=== PATIENT | female | born 1975 | race Caucasian/White ===

== ENCOUNTER 2019-04-22 15:42 | Outpatient (CLI) | payer MEDICARE, MEDICAID, SELFPAY | END 2019-04-22 15:43 | disposition home or self-care (01) | LOC: SPT 15:42 | PROVIDERS: Family Provider Internal Medicine; PCP Internal Medicine; Visit Provider Podiatrist Foot & Ankle Surgery | DX: S82.892D Other fracture of left lower leg, subsequent encounter for closed fracture with routine healing (principal); X58.XXXD Exposure to other specified factors, subsequent encounter | CPT/HCPCS: L1902 ==

== ENCOUNTER 2019-05-21 12:24 | Outpatient (CLI) | payer MEDICARE, MEDICAID, SELFPAY ==
[2019-05-21 13:35] LABS: Calcium 9.2 mg/dL (8.5-10.5)
[2019-05-21 13:38] LABS: 25 Hydroxy Vitamin D 89 ng/mL (30-100)
[2019-05-27 01:12] LABS: Vit D 1,25 (Oh)2, Total 43 pg/mL (18-72); Vit D2 1,25 (Oh)2 <8 pg/mL; Vit D3 1,25 (Oh)2 43 pg/mL
== END 2019-05-21 12:25 | disposition home or self-care (01) ==
LOC: LAB 12:27
PROVIDERS: Family Provider Internal Medicine; PCP Internal Medicine; Visit Provider Internal Medicine Critical Care Medicine
DX: D86.9 Sarcoidosis, unspecified (principal)
CPT/HCPCS: 82306; 82310; 82652; 83970

== ENCOUNTER 2019-06-02 09:37 | Outpatient (CLI) | payer MEDICARE, MEDICAID, SELFPAY ==
--- NOTE | 2019-06-02 10:00 | CT_ITS ---
WS: [id number] CT CHEST WITHOUT INTRAVENOUS CONTRAST HISTORY: shortness of breath TECHNIQUE: Contiguous 5 mm axial imaging performed on the thorax. Coronal and sagittal reformats are submitted. All CT scans at [facility] use at least one of these dose optimization techniq ues: automated exposure control; mA and/or kV adjustment per patient size (includes targeted exams wh ere dose is matched to clinical indication); or iterative reconstruction. CONTRAST: None DLP: 1026.53 mGycm COMPARISON: 05/10/2010 Lungs and central airway: Lungs are clear and well aerated. Bronchovascular structures are normal. Th ere is no nodularity in a perilymphatic distribution or along the fissures. Pleura: Normal. No pleural effusion. Heart and pericardium: Normal size heart. No pericardial effusion. Mediastinum and rusty: No adenopathy is identified. Small lymph nodes seen on the prior study from 201 1 are not definitely identified on this unenhanced study. Vessels: Minimal atherosclerosis aorta. Pulmonary artery size is normal. Chest wall and lower neck: Surgical clips at the thoracic inlet. Thyroid gland is still evident. Upper abdomen: Decreased attenuation in the liver. Spleen may be enlarged but incompletely visualized . Anterior posterior diameter 16 cm. Splenomegaly was described on 08/04/2009. There is diffuse hepatic steatosis. Prior cholecystectomy. Osseous structures: Increase in thoracic kyphosis. Mild disc space narrowing and small endplate osteo phytes. CT/CT chest wo con [id number] IMPRESSION: 1. No significant adenopathy pneumonia. 2. Mild atherosclerosis aorta. 3. Hepatic steatosis and splenomegaly. Spleen is incompletely visualized but a ppears large and splenomegaly was described on 08/04/2009 also. 4. Prior cholecystectomy.
== END 2019-06-02 09:38 | disposition home or self-care (01) ==
LOC: RADWPI 09:43
PROVIDERS: Family Provider Internal Medicine; PCP Internal Medicine; Visit Provider Internal Medicine Critical Care Medicine
DX: I70.0 Atherosclerosis of aorta (principal); R06.02 Shortness of breath; K76.0 Fatty (change of) liver, not elsewhere classified; R16.1 Splenomegaly, not elsewhere classified; Z90.49 Acquired absence of other specified parts of digestive tract
CPT/HCPCS: 71250

== ENCOUNTER 2019-08-11 09:21 | Outpatient (CLI) | payer MEDICARE, MEDICAID, SELFPAY ==
--- NOTE | 2019-08-11 10:03 | MM_ITS ---
WS: [id number] BILATERAL DIGITAL SCREENING MAMMOGRAPHY WITH CAD CLINICAL INFORMATION: SCREEN HISTORY: Screening mammogram. No current complaints. COMPARISON: July 02, 2018 TECHNIQUE: Bilateral CC and MLO views. FINDINGS: Scattered fibroglandular densities bilaterally. No suspicious focal mass, asymmetry, calcifications, or architectural distortion. No evidence of malignancy. MM/[place] [id number] IMPRESSION: BI-RADS: 1-Negative FOLLOW UP: 1 Year Follow-up Recommend return to annual screening mammography.
== END 2019-08-11 09:22 | disposition home or self-care (01) ==
LOC: RADSHAW 09:26
PROVIDERS: PCP Internal Medicine; Visit Provider Internal Medicine
DX: Z12.31 Encounter for screening mammogram for malignant neoplasm of breast (principal)
CPT/HCPCS: 77067

== ENCOUNTER 2019-08-18 08:19 | Outpatient (RCR) | payer MEDICARE, MEDICAID, SELFPAY | END 2019-08-30 23:59 | disposition home or self-care (01) | LOC: SPT 08:19 | PROVIDERS: PCP Internal Medicine; Referring Provider Otolaryngology; Visit Provider Otolaryngology | DX: R42 Dizziness and giddiness (principal) | CPT/HCPCS: 97162 ==

== ENCOUNTER 2019-08-19 12:31 | Outpatient (CLI) | payer MEDICARE, MEDICAID, SELFPAY ==
--- NOTE | 2019-08-19 12:37 | XR_ITS ---
WS: [id number] LEFT SHOULDER: 3 VIEW(S) TECHNIQUE: Internal and external rotation with Y view. HISTORY: SHOULDER JOINT PAIN, LEFT COMPARISON: None available. No fracture or dislocation or soft tissue abnormality. Glenohumeral and AC joints are unremarkable. XR/XR shoulder LT min 2V* [id number] IMPRESSION: Negative LEFT shoulder for acute or healed fracture.
== END 2019-08-19 12:32 | disposition home or self-care (01) ==
LOC: RAD 12:35
PROVIDERS: PCP Internal Medicine; Visit Provider Internal Medicine
DX: M25.512 Pain in left shoulder (principal)
CPT/HCPCS: 73030

== ENCOUNTER 2019-08-31 06:00 | Outpatient (RCR) | payer MEDICARE, MEDICAID, SELFPAY | END 2019-09-29 23:59 | disposition home or self-care (01) | LOC: SPT 06:00 | PROVIDERS: PCP Internal Medicine; Visit Provider Nurse Practitioner Family | DX: M25.512 Pain in left shoulder (principal) | CPT/HCPCS: 97110; 97162 ==

== ENCOUNTER 2019-09-16 10:02 | Day surgery (SDC) | payer MEDICARE, MEDICAID, SELFPAY ==
[2019-09-14 10:06] VITALS: BMI 51.5
[2019-09-16 11:34] LABS: Glucose Point of Care 199 mg/dL (70-110)
[2019-09-16] MEDS: sodium chloride 0.9% 1,000 ML 30 ML IV (11:55)
--- NOTE | 2019-09-16 12:26 | ANES.PREANE2 ---
Pre-Anesthetic Assessment Pre-Anesthetic Assessment: Height/Weight: Height 1.73 m Weight 153.768 kg Preop Diagnosis: Chronic GERD and screening colonoscopy Proposed Procedure: Operation Date: 09/16/19 11:30 Proposed Procedures p EGD/COLON 39557 21621 K21.9 Z12.11(Not Applicable) - Anson Medina MD s Colonoscopy(Not Applicable) - Anson Medina MD Last intake: Intake Last Liquid Date 09/15/19 Last Liquid Time 20:00 Last Solid Date 09/15/19 Last Solid Time 20:00 Social: Social History: No alcohol and No tobacco Exam: Pre-Anes Outpt Exam: alert, oriented x 3, clear to auscultation bilaterally and regular rate & rhythm Airway: Submandibular: WNL Cervical ROM: WNL MP: 1 Dentition: Full (edentureless) History/ROS: No significant history except as noted Pulmonary: Pulmonary: Asthma, Sleep apnea and None reported CV/HEM: CV/HEM: HTN : : None reported Hepatic: Hepatic: None reported GI: GI: GERD (occ) Metabolic: Metabolic: DM and Morbid obesity Musc/skel: Musc/skel: Lower Back Pain and OA/DJD Neuropsych: Neuropsych: Anxiety and Depression Anesthetic Plan: ASA status: 3 Anesthesia: Anesthesia Evaluation and MAC Risk of > 500 ml blood loss (7ml/kg in children): No Meds/Allergies Current Medications: Current Medications Generic Name Dose Route Start Last Admin Trade Name Freq PRN Reason Stop Dose Admin Sodium Chloride 1,000 mls @ 30 ml s/hr 09/16/19 11:00 09/16/19 11:55 Sodium Chloride 0.9% IV 09/17/19 10:59 30 mls/hr .Q24H HEAVENLY Administration PFSH Anesthesia PFSH: Medical History Diabetes Hemolytic anemia History of benign breast tumor Sarcoidosis Type 2 diabetes mellitus Surgical History History of 2 sections History of arthroplasty of left ankle History of laparoscopic cholecystectomy History of lung biopsy Family History Mother Cancer lung cancer Stroke Other Diabetes Hyperlipidemia Hypertension Denies family history of Anesthesia complication Bleeding disorder Social History Smoking and tobacco status: never smoked Second hand smoke exposure: No Alcohol intake: never Adopted: No Caregiver/support person: Yes Lives independently: Yes Household members: family Housing: Apartment Marital status: Single service: No Current occupational status: disabled Current occupational exposures/hazards: No Pets and animals: Yes History of recent travel: No Sexually active: No Current gender identity: Female Uzma/Taoism: Episcopal Special uzma needs: No Data Anesthesia Other Labs: Laboratory Results - last 48 hr 09/16/19 11:30 POC Glucose 199 Cardiac Studies: No Data to Display
--- NOTE | 2019-09-16 13:27 | W.PM.OPSUD ---
Surgery/Procedure H&P Update DATE OF PROCEDURE: September 16, 2019 DATE H&P PERFORMED: 08/27/19 H&P UPDATE INFORMATION: I have reviewed H&P completed within last 30 days, I have examined patient prior to procedure and No changes to prior documentation PREOP DIAGNOSIS: Chronic GERD and screening colonoscopy PRIMARY INDICATION FOR PROCEDURE: The same PLANNED PROCEDURE: Operation Date: 09/16/19 11:30 Proposed Procedures p EGD/COLON 13137 18227 K21.9 Z12.11(Not Applicable) - Anson Medina MD s Colonoscopy(Not Applicable) - Anson Medina MD
[2019-09-16 13:49] VITALS: BP 124/98; PULSE 105; RESP 16; TEMP 36.2
[2019-09-16 14:04] VITALS: BP 147/100; PULSE 96; RESP 16; TEMP 36.3; O2SAT 99
== END 2019-09-16 14:25 | disposition home or self-care (01) ==
PROVIDERS: PCP Internal Medicine; Visit Provider Surgery
PROC: 0DJ08ZZ Inspection of Upper Intestinal Tract, Via Natural or Artificial Opening Endoscopic (ICD-10-PCS; CPT 43235; principal; 2019-09-16 11:30)
PROC: 0DJD8ZZ Inspection of Lower Intestinal Tract, Via Natural or Artificial Opening Endoscopic (ICD-10-PCS; CPT 45378; 2019-09-16 11:30)
DX: Z12.11 Encounter for screening for malignant neoplasm of colon (principal); K21.9 Gastro-esophageal reflux disease without esophagitis; K57.30 Diverticulosis of large intestine without perforation or abscess without bleeding; E66.01 Morbid (severe) obesity due to excess calories; Z68.43 Body mass index [BMI] 50.0-59.9, adult; J45.909 Unspecified asthma, uncomplicated; I10 Essential (primary) hypertension; G47.30 Sleep apnea, unspecified; E11.9 Type 2 diabetes mellitus without complications; M19.90 Unspecified osteoarthritis, unspecified site
CPT/HCPCS: 12345; 36416; 43235; 45378; 82962; J0171; J2704; J7030

== ENCOUNTER 2019-10-31 06:00 | Outpatient (RCR) | payer MEDICARE, MEDICAID, SELFPAY | END 2019-11-30 23:59 | disposition home or self-care (01) | LOC: SPT 06:00 | PROVIDERS: PCP Internal Medicine; Visit Provider Nurse Practitioner Family | DX: M25.512 Pain in left shoulder (principal) | CPT/HCPCS: 97110 ==

== ENCOUNTER 2020-02-23 07:47 | Outpatient (CLI) | payer MEDICARE, MEDICAID, SELFPAY ==
--- NOTE | 2020-02-23 08:00 | MR_ITS ---
WS: [id number] MRI LEFT SHOULDER NONCONTRAST TECHNIQUE: Sagittal T2, coronal T1, T2 and proton density imaging. Axial gradient PDE imaging. CLINICAL INFORMATION: SHOULDER JOINT PAIN, LEFT COMPARISON: None. FINDINGS: Mild degenerative arthritis AC joint with moderate downsloping of the acromion. Narrowing of the suba cromial space. No significant subacromial/subdeltoid fluid. Mild chronic thinning of the supraspinatus. Mild tendinopathy in the distal supraspinatus. Tiny inser tional tear of the supraspinatus insertion distally. Normal infraspinatus. Normal teres minor. Mild c hronic thinning of the subscapularis tendon distally which appears intact. Normal biceps tendon in th e bicipital groove. Normal intra-articular biceps tendon. Chronic fraying of the glenoid labrum. MR/MR shoulder LT con* [id number] IMPRESSION: 1. Mild degenerative arthritis at the AC joint with moderate downsloping of th e acromion. 2. Chronic thinning of the distal supraspinatus with tendinopathy. Tiny insert ional tear at the supraspinatus insertion distally. 3. Rotator cuff is otherwise unremarkable. 4. Normal biceps tendon in the bicipital groove. 5. Normal intra-articular biceps tendon.
== END 2020-02-23 07:48 | disposition home or self-care (01) ==
LOC: RADWPI 07:52
PROVIDERS: PCP Internal Medicine; Visit Provider Internal Medicine
DX: M19.012 Primary osteoarthritis, left shoulder (principal)
CPT/HCPCS: 73221

== ENCOUNTER 2020-03-10 08:28 | Outpatient (RCR) | payer MEDICARE, MEDICAID, SELFPAY | END 2020-03-31 23:59 | disposition home or self-care (01) | LOC: SPT 08:28 | PROVIDERS: PCP Internal Medicine; Referring Provider Orthopaedic Surgery; Visit Provider Orthopaedic Surgery | DX: M25.512 Pain in left shoulder (principal) | CPT/HCPCS: 97110; 97162 ==

== ENCOUNTER 2020-04-01 06:00 | Outpatient (RCR) | payer MEDICARE, MEDICAID, SELFPAY | END 2020-05-01 23:59 | disposition home or self-care (01) | LOC: SPT 06:00 | PROVIDERS: PCP Internal Medicine; Referring Provider Orthopaedic Surgery; Visit Provider Orthopaedic Surgery | DX: M25.512 Pain in left shoulder (principal) | CPT/HCPCS: 97110 ==

== ENCOUNTER 2020-07-29 15:46 | Emergency (ER) | payer MEDICARE, MEDICAID, SELFPAY ==
[2020-07-29 15:48] VITALS: BP 170/76; PULSE 92; RESP 18; TEMP 36.8; O2SAT 97; BMI 50.1
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
[2020-07-29] MEDS: tetanus-dipt-pertussis 0.5 mL SDV IM (18:05)
[2020-07-29 18:08] VITALS: BP 159/105; PULSE 87; RESP 18; O2SAT 98
[2020-07-29] MEDS: acetaminophen 500 mg Tablet 1000 MG PO (18:40)
[2020-07-29 19:26] VITALS: BP 162/94; PULSE 85; RESP 16; O2SAT 100
== END 2020-07-29 19:28 | disposition home or self-care (01) ==
PROVIDERS: Emergency Provider Nurse Practitioner Family; PCP Internal Medicine
DX: S16.1XXA Strain of muscle, fascia and tendon at neck level, initial encounter (principal); S01.81XA Laceration without foreign body of other part of head, initial encounter; S00.03XA Contusion of scalp, initial encounter; Z79.4 Long term (current) use of insulin; E11.9 Type 2 diabetes mellitus without complications; V47.5XXA Car driver injured in collision with fixed or stationary object in traffic accident, initial encounter; Z23 Encounter for immunization
CPT/HCPCS: 71046; 72040; 72072; 90471; 90715; 99283

== ENCOUNTER 2020-11-05 12:48 | Emergency (ER) | payer MEDICARE, MEDICAID, SELFPAY ==
[2020-11-05 12:55] VITALS: BP 191/93; PULSE 59; RESP 18; TEMP 37.2; O2SAT 98; BMI 51.7
--- NOTE | 2020-11-05 13:06 | ED_ITS ---
HPI - URI/Sore Throat General: Chief Complaint: COVID symptoms Stated Complaint: SORE THROAT Time Seen by Provider: 11/05/20 12:54 Source: patient Mode of arrival: ambulatory Limitations: no limitations History of Present Illness: HPI Narrative: Patient is a 45-year-old female who presents to ED today with a complaint of a sore throat, cough, and fatigue. Patient tells me she attended an event last week where one of the individuals was positive for strep and another was positive for COVID. Patient states she has been to her PCP and tested for strep which came back negative. She also states culture came back negative. Patient states she has been fully vaccinated for COVID. She has not been running fevers. Denies chest pain, shortness of breath, difficulty breathing. MD elicited complaint: cough, sore throat and other (fatigue) Onset (ago): day(s) Consistency: constant Able to tolerate fluids by mouth: Yes Context: sick contacts Associated symptoms: Deny abdominal pain, chills, chest pain, diarrhea, ear or mastoid pain, fever(s), headache(s), nasal congestion, nausea, sinus pain or vomiting Review of Systems Const: Reports: fatigue; Denies: fever(s), chills or body aches Eyes: Denies: change in vision ENMT: Reports: throat pain and odynophagia; Denies: ear or mastoid pain, nasal discharge, nasal congestion or sinus pain Card: Denies: chest pain, palpitations, irregular heart rhythm, edema, lightheadedness, syncope, pre-syncope, dyspnea on exertion or orthopnea Resp: Reports: non-productive cough and pain on inspiration; Denies: dyspnea, productive cough, wheezing, stridor or hemoptysis GI: Denies: abdominal pain, nausea, vomiting or diarrhea : Denies: flank pain or dysuria Musc: Denies: neck pain, back pain, extremity pain or joint pain Skin/Breast: Denies: rash Neuro: Denies: headache(s), numbness in extremities, weakness in extremities, sensory changes or dizziness PFS ED PFSH: Medical History (Updated 11/05/20 @ 15:25 by MELLISA Godinez) Diabetes Hemolytic anemia History of benign breast tumor Sarcoidosis Type 2 diabetes mellitus Surgical History History of 2 sections History of arthroplasty of left ankle History of laparoscopic cholecystectomy History of lung biopsy Family History Mother Cancer lung cancer Stroke Other Diabetes Hyperlipidemia Hypertension Denies family history of Anesthesia complication Bleeding disorder Social History Smoking and tobacco status: never smoked Second hand smoke exposure: No Alcohol intake: never Adopted: No Caregiver/support person: Yes Lives independently: Yes Household members: family Housing: Apartment Marital status: Single service: No Current occupational status: disabled Current occupational exposures/hazards: No Pets and animals: Yes History of recent travel: No Sexually active: No Current gender identity: Female Uzma/Holiness: Confucianist Special uzma needs: No Physical Exam Const: COMMON NORMALS: no acute distress, patient oriented x3, no limitations and alert GENERAL APPEARANCE: cooperative NUTRITIONAL APPEARANCE: obese morbidly obese ORIENTATION/CONSCIOUSNESS: Yes awake, Yes oriented to person, Yes oriented to place and Yes oriented to time HENMT: COMMON NORMALS: normocephalic, atraumatic, hearing grossly normal bila terally, external ears normal, EAC's normal, TM's normal bilaterally, Normal external nose present, Normal nasal mucous membranes and turbinates present, moist oral mucous membranes, oropharynx normal and gingiva normal HEAD & SCALP: normal to inspection, normocephalic and atraumatic FACE & SINUS: normal facial exam and sinuses nontender NOSE: Normal external nose present and Normal nasal mucous membranes and turbinates present EXTERNAL EAR: Yes external ears normal EXTERNAL AUDITORY CANAL: EAC's normal TYMPANIC MEMBRANE: TM's normal bilaterally MOUTH: Normal oral and palatal mucosa present, lip normal and tongue normal THROAT: posterior oropharynx normal, tonsils normal and uvula midline Neck/C-Spine: COMMON NORMALS: full ROM, no lymphadenopathy and no meningeal signs Resp: COMMON NORMALS: normal respiratory effort and clear to auscultation bilaterally AUSCULTATION: clear to auscultation bilaterally Cardio: COMMON NORMALS: regular rate and regular rhythm RATE: regular rate RHYTHM: regular rhythm Neuro: SANIYA COMA SCALE: document GCS findings Saniya coma scale eye opening: Spontaneous Saniya coma scale verbal response: Orientated Saniya coma scale motor response: Obey commands Saniya coma scale total score: 15 COMMON NORMALS: patient oriented x3 SENSORIUM/ORIENTATION: Yes alert, Yes oriented to person, Yes oriented to place and Yes oriented to time MENINGEAL SIGNS: Yes no meningeal signs Skin: COMMON NORMALS: no rashes or lesions noted GENERAL SKIN EXAM: no rashes or lesions noted Course Vital Signs: Vital signs: Vital Signs Temperature 99 F 11/05/20 12:55 Pulse Rate 89 11/05/20 13:53 Respiratory Rate 18 11/05/20 13:53 Blood Pressure 177/77 11/05/20 13:53 Pulse Oximetry 97 11/05/20 13:53 MDM - URI/Sore Throat MDM Narrative: Medical decision making narrative: Patient clinically is non- ill and nontoxic appearing. Her vital signs are stable. Labs showing stable chronic anemia. She has nonspecific elevations to her liver enzymes and tbili that are chronic. CXR is normal. Rapid COVID is negative. PCR pending. Patient will be allowed discharge with instructions for quarantine until PCR results return. Return to ED precautions given. Lab Data: Labs: Lab Results 11/05/20 11/05/20 11/05/20 Range/Units 13:49 13:49 13:49 WBC 6.6 (4.0-10.0) 10^3/ uL RBC 3.39 L (4.1-5.3) 10^6/u L Hgb 10.2 L (11.5-15.3) g/dL Hct 31.7 L (37.0-47.0) % MCV 93.5 (81-99) fL MCH 30.1 (28.0-34.0) pg MCHC 32.2 (30.0-36.0) g/dL RDW 20.9 H (12.1-15.1) % Plt Count 210 (130-400) 10^3/c mm MPV 10.1 (7.4-10.4) fL Neut % (Auto) 75.8 % Lymph % (Auto) 16.8 % Hart % (Auto) 5.3 % Eos % (Auto) 1.2 % Baso % (Auto) 0.6 % Neut # (Auto) 5.01 (1.8-7.7) 10^3/u L Lymph # (Auto) 1.1 (0.8-4.8) 10^3/u L Hart # (Auto) 0.4 (0.2-0.9) 10^3/u L Eos # (Auto) 0.1 (0.0-0.8) 10^3/u L Baso # (Auto) 0.0 (0.0-0.1) 10^3/u L Nucleated RBC % (a uto) 0 % Nucleated RBCs # 0.0 /100WBC Sodium 135 L (136-145) mmol/L Potassium 3.5 (3.5-5.1) mmol/L Chloride 102 (98-107) mmol/L Carbon Dioxide 22 (22-29) mmol/L Anion Gap 14.5 (5-19) BUN 7 (6-20) mg/dL Creatinine 0.4 L (0.5-0.9) mg/dL GFR Calculation 171.1 H (90-130) mL/min Glucose 296 H (65-115) mg/dL Calculated Osmolal ity 289 (285-295) mOsm/k g Calcium 8.0 L (8.5-10.5) mg/dL Total Bilirubin 1.7 H (0.15-1.2) mg/dL AST 41 H (0-32) U/L ALT 42 H (0-33) U/L Alkaline Phosphata se 70 (35-105) IU/L Total Protein 6.9 (6.6-8.7) g/dL Albumin 3.5 (3.5-5.2) g/dL Globulin 3.4 (1.3-4.6) g/dL SARS-CoV-2 Ag (Rap id) Negative (Negative) Imaging Data^: CXR: Radiologist's impression: [address] [id number] ReportSigned Patient: Deedee Beck #: [id number]: 1975Acct#:[id number]/Sex: 45 / FADM Date: 11/05/20Loc: ERRoom/B ed:Attending Dr: Ordering Provider/Ordering MD: Jimena Neff Date of Service: 11/05/20 Procedure(s): XR chest 1V portable [id number] Accession Number(s): [id number] Report Number: [id number] PROCEDURE INFORMATION: Exam: XR Chest Exam date and time: 11/05/2020 1:16 PM Age: 45 years old Clinical indication: Cough and shortness of breath; Additional info: Cough, fatigue TECHNIQUE: Imaging protocol: XR of the chest. Views: 1 view. COMPARISON: CR XR chest 2V* [id number] 07/29/2020 5:50 PM FINDINGS: Lungs: Unremarkable. No consolidation. Pleural spaces: Unremarkable. No pleural effusion. No pneumothorax. Heart/Mediastinum: Unremarkable. No cardiomegaly. Bones/joints: Unremarkable. XR/XR chest 1V portable [id number] IMPRESSION: No acute findings. Dictated By:Joseph Tesfaye DOSigned By:Joseph Tesfaye DOSigned Date/Time:11/05/20 1509DD/ 150 Discharge Plan Discharge Patient Disposition: Home Clinical Impression: Exposure to severe acute respiratory syndrome coronavirus 2 (SARS-CoV-2), Exposure to 2019-nCoV Upper respiratory tract infection Qualifiers: URI type: unspecified viral URI Qualified Code(s): J06.9 - Acute upper respiratory infection, unspecified Condition: Stable Prescriptions: No Action ibuprofen 800 mg tablet 800 mg PO Q8H RF: 0 albuterol sulfate 90 mcg/actuation aerosol powdr breath activated See Rx Instructions .ROUTE .COMPLEX RF: 0 enalapril maleate 2.5 mg tablet 2.5 mg PO DAILY@0800 RF: 0 atorvastatin [Lipitor] 10 mg tablet 10 mg PO DAILY@2000 RF: 0 baclofen 10 mg tablet 10 mg PO BID RF: 0 cyanocobalamin (vitamin B-12) 1,000 mcg capsule 1,000 mcg PO DAILY@0800 RF: 0 Zyrtec 10 mg capsule 10 mg PO DAILY@1999 RF: 0 insulin lispro [Humalog KwikPen Insulin] 100 unit/mL insulin pen 5 unit SUBCUT TID RF: 0 folic acid 1 mg tablet 1 mg PO DAILY@0800 RF: 0 Lantus Solostar U-100 Insulin 100 unit/mL (3 mL) insulin pen 60 unit SUBCUT DAILY@0800 RF: 0 hydroxychloroquine [Plaquenil] 200 mg tablet 200 mg PO DAILY@0800 RF: 0 metformin 500 mg tablet 1,000 mg PO BID@0800 RF: 0 venlafaxine [Effexor XR] 150 mg capsule,extended release 24hr 150 mg PO DAILY@0800 RF: 0 omeprazole 40 mg capsule,delayed release(DR/EC) 40 mg PO DAILY@0800 RF: 0 azelastine 137 mcg (0.1 %) aerosol,spray 1 spray intranasal BID 30 Days Qty: 30 RF: 6 Trulicity 1.5 mg/0.5 mL pen injector 1.5 mg SUBCUT Q7D RF: 0 Symbicort 160-4.5 mcg/actuation HFA aerosol inhaler 2 puff inhalation BID@0800,1999 RF: 0 Discharge Orders: Discharge ED (Routine); Ordered 11/05/20 Ordered By: Jimena Neff Referrals: Marge Oshea MD [Primary Care Provider] - Activity Restrictions/Additional Instructions: As we discussed your rapid COVID is negative. Your PCR send out test is pending. You need to quarantine until these results return. If positive you need to quarantine for a full 10 days starting from symptom onset and quarantine is not lifted until symptoms improve. Coding Level of Care Code ED [employer] for Roland Fwd Exam Detailed
--- NOTE | 2020-11-05 13:16 | XRR_ITS ---
PROCEDURE INFORMATION: Exam: XR Chest Exam date and time: 11/05/2020 1:16 PM Age: 45 years old Clinical indication: Cough and shortness of breath; Additional info: Cough, fatigue TECHNIQUE: Imaging protocol: XR of the chest. Views: 1 view. COMPARISON: CR XR chest 2V* [id number] 07/29/2020 5:50 PM FINDINGS: Lungs: Unremarkable. No consolidation. Pleural spaces: Unremarkable. No pleural effusion. No pneumothorax. Heart/Mediastinum: Unremarkable. No cardiomegaly. Bones/joints: Unremarkable. XR/XR chest 1V portable [id number] IMPRESSION: No acute findings.
[2020-11-05 13:53] VITALS: BP 177/77; PULSE 89; RESP 18; O2SAT 97
[2020-11-05 14:00] VITALS: BP 160/82; PULSE 87; RESP 18; O2SAT 100
[2020-11-05 14:05] LABS: Basophils % 0.6 %; Eosinophils # 0.1 10^3/uL (0.0-0.8); Eosinophils % 1.2 %; Hematocrit 31.7 % (37.0-47.0); Hemoglobin 10.2 g/dL (11.5-15.3); Lymphocytes # 1.1 10^3/uL (0.8-4.8); Lymphocytes % 16.8 %; Mean Corpuscular HGB Conc 32.2 g/dL (30.0-36.0); Mean Corpuscular Hemoglobin 30.1 pg (28.0-34.0); Mean Corpuscular Volume 93.5 fL (81-99); Mean Platelet Volume 10.1 fL (7.4-10.4); Monocytes # 0.4 10^3/uL (0.2-0.9); Monocytes % 5.3 %; Neutrophils # 5.01 10^3/uL (1.8-7.7); Neutrophils % 75.8 %; Nucleated Red Blood Cells % 0 %; Platelet Count 210 10^3/cmm (130-400); Red Blood Count 3.39 10^6/uL (4.1-5.3); Red Cell Distribution Width 20.9 % (12.1-15.1); White Blood Count 6.6 10^3/uL (4.0-10.0)
[2020-11-05 14:25] LABS: Alanine Aminotransferase 42 U/L (0-33); Albumin Level 3.5 g/dL (3.5-5.2); Alkaline Phosphatase 70 IU/L (35-105); Anion Gap 14.5 (5-19); Aspartate Amino Transferase 41 U/L (0-32); Blood Urea Nitrogen 7 mg/dL (6-20); Carbon Dioxide 22 mmol/L (22-29); Chloride 102 mmol/L (98-107); Globulin 3.4 g/dL (1.3-4.6); Glomerular Filtration Rate 171.1 mL/min (90-130); Glucose 296 mg/dL (65-115); Osmolality Calculated 289 mOsm/kg (285-295); Potassium 3.5 mmol/L (3.5-5.1); Sodium 135 mmol/L (136-145); Total Bilirubin 1.7 mg/dL (0.15-1.2); Total Protein 6.9 g/dL (6.6-8.7)
[2020-11-05 15:14] LABS: SARS Covid-2 Antigen Negative (Negative)
[2020-11-05 15:53] VITALS: BP 164/88; PULSE 89; RESP 18; O2SAT 100
[2020-11-07 21:53] LABS: Quest SARS-CoV-2 RNA NOT DETECTED (NOT DETECTED)
--- NOTE | 2020-11-08 09:54 | PC.NURSE ---
PT CALLED AND GIVEN THE RESULTS OF HER COVID TEST
== END 2020-11-05 15:55 | disposition home or self-care (01) ==
PROVIDERS: Emergency Provider Physician Assistant; PCP Internal Medicine
DX: J06.9 Acute upper respiratory infection, unspecified (principal); Z20.822 Contact with and (suspected) exposure to COVID-19; Z79.4 Long term (current) use of insulin; E11.9 Type 2 diabetes mellitus without complications
CPT/HCPCS: 71045; 80053; 85025; 87426; 87635; 99283

== ENCOUNTER 2021-07-14 07:37 | Outpatient (CLI) | payer MEDICARE, MEDICAID, SELFPAY ==
--- NOTE | 2021-07-14 07:51 | XR_ITS ---
WS: [id number] Lumbar spine, AP, both obliques, lateral, L5-S1 spot, 07/14/2021 Clinical Data: L SIDE LUMBAGO W/SCIATICA Comparison: Lumbar spine, 10/02/2013. Findings: No compression fractures or subluxation is seen. Degenerative disc narrowing is seen at the lower tho racic discs and T12-L1 and L1-L2. There is anterior osteoarthritic spurring from L1 through L4.. The transverse processes and SI joints are normal. The oblique films show no spondylolysis. There are clips in the right upper quadrant from a cholecyst ectomy. There are a plate and screws repairing an old fracture of the right acetabulum. XR/XR lumbar spine min 4V [id number] Impression: 1. Osteoarthritis L1-L4. 2. Degenerative disc narrowing at T12-L1 and L1-L2. 3. No spondylolysis or spondylolisthesis.
== END 2021-07-14 07:38 | disposition home or self-care (01) ==
LOC: RAD 07:40
PROVIDERS: PCP Internal Medicine; Visit Provider Nurse Practitioner Family
DX: M54.40 Lumbago with sciatica, unspecified side (principal); M47.896 Other spondylosis, lumbar region; M47.894 Other spondylosis, thoracic region
CPT/HCPCS: 72110

== ENCOUNTER 2021-08-21 08:27 | Outpatient (CLI) | payer OTHER, MEDICAID, SELFPAY ==
--- NOTE | 2021-08-21 08:36 | CT_ITS ---
WS: [id number] CT NECK TECHNIQUE: Contrast-enhanced CT of the neck with coronal and sagittal reformatted images. CLINICAL INFORMATION: CERVICALGIA COMPARISON: None. DLP: 672.[address] scans at [facility] use at least one of these dose optimization techniques: automated e xposure control; mA and/or kV adjustment per patient size (includes targeted exams where dose is matc hed to clinical indication); or iterative reconstruction. FINDINGS: Normal parotid glands. A few intraparotid lymph nodes. Normal submandibular glands. Surgical clips at the thoracic inlet. Normal parapharyngeal fat. Normal posterior nasopharynx. Mastoid air cells are w ell aerated. Paranasal sinuses are well aerated. Normal vallecula and piriform sinuses. Normal epiglottis. No evidence of supraglottic or glottic mass . Heterogeneous somewhat enlarged thyroid. This can be followed up with ultrasound on an elective bas is. Straightening of the normal cervical lordosis. Slight anterolisthesis C4 on C5. CT/CT neck w con* [id number] IMPRESSION: 1. Normal salivary glands. 2. No evidence of supraglottic or glottic mass. 3. No cervical lymphadenopathy. 4. Somewhat enlarged and heterogeneous thyroid. This can be followed up with u ltrasound on an elective basis. 5. Straightening of the normal cervical lordosis. Slight anterolisthesis C4 on C5. 6. No other significant findings.
[2021-08-21] MEDS: iohexol 300 mg/mL 100 mL Btl IV (14:48)
== END 2021-08-21 08:28 | disposition home or self-care (01) ==
LOC: RAD 08:32
PROVIDERS: PCP Internal Medicine; Visit Provider Specialist
DX: M54.2 Cervicalgia (principal)
CPT/HCPCS: 70491

== ENCOUNTER 2021-08-24 11:17 | Outpatient (CLI) | payer OTHER, MEDICAID, SELFPAY ==
--- NOTE | 2021-08-24 11:32 | XR_ITS ---
WS: [id number] Exam: XR chest 2V* [id number] Date/Time of Exam: 08/24/2021 11:48 AM Reason For Exam: COUGH Comparison 11/05/2020. Findings: The lungs are clear and fully expanded. Costophrenic angles are sharp. No infiltrates. Bronchovascula r relief appears normal. Cardiac silhouette is unremarkable. Bony elements are intact. XR/XR chest 2V* [id number] IMPRESSION: Unremarkable chest radiograph.
== END 2021-08-24 11:18 | disposition home or self-care (01) ==
LOC: RAD 11:19
PROVIDERS: PCP Internal Medicine; Visit Provider Internal Medicine
DX: R05.9 Cough, unspecified (principal)
CPT/HCPCS: 71046

== ENCOUNTER 2021-10-16 09:57 | Outpatient (CLI) | payer OTHER, MEDICAID, SELFPAY ==
--- NOTE | 2021-10-16 10:02 | MM_ITS ---
WS: [id number] SCREENING DIGITAL BREAST TOMOSYNTHESIS MAMMOGRAM WITH CAD HISTORY: SCREENING COMPARISON: 08/11/2019 and 07/02/2018 Bilateral CC and MLO with tomosynthesis views submitted. Synthetic mammography reviewed. Computer aid ed detection analyzed. Breast composition: There are scattered areas of fibroglandular density. No suspicious masses, microc alcifications or architectural distortion. MM/[place] [id number] IMPRESSION: BI-RADS: 1-Negative FOLLOW UP: 1 Year Follow-up
== END 2021-10-16 09:58 | disposition home or self-care (01) ==
LOC: RAD 09:57
PROVIDERS: PCP Internal Medicine; Visit Provider Internal Medicine
DX: Z12.31 Encounter for screening mammogram for malignant neoplasm of breast (principal)
CPT/HCPCS: 77063; 77067

== ENCOUNTER → 2021-10-19 11:56 | Outpatient (BNVA) | payer OTHER, MEDICAID, SELFPAY | PROVIDERS: PCP Internal Medicine; Visit Provider Internal Medicine | DX: D86.9 Sarcoidosis, unspecified (principal); M25.50 Pain in unspecified joint; Z79.899 Other long term (current) drug therapy | CPT/HCPCS: 36415; 71046; 73120; 80053; 81001; 82550; 83516; 84443; 85025; 86140; 86160; 86162; 86200; 86235; 86255; 86376; 86431; 86480; 86704; 86803; 87340 ==

== ENCOUNTER 2021-11-21 14:03 | Outpatient (CLI) | payer OTHER, MEDICAID, SELFPAY ==
[2021-11-22 13:34] LABS: Angiotensin Converting Enzyme 16 U/L (9-67)
== END 2021-11-21 14:04 | disposition home or self-care (01) ==
LOC: LAB 14:05
PROVIDERS: PCP Internal Medicine; Visit Provider Internal Medicine
DX: M25.50 Pain in unspecified joint (principal)
CPT/HCPCS: 82164

== ENCOUNTER 2021-12-23 12:43 | Outpatient (CLI) | payer OTHER, MEDICAID, SELFPAY ==
[2021-12-23 13:06] LABS: Basophils # 0.1 10^3/uL (0.0-0.1); Basophils % 0.7 %; Eosinophils # 0.3 10^3/uL (0.0-0.8); Hematocrit 37.1 % (37.0-47.0); Hemoglobin 12.6 g/dL (11.5-15.3); Lymphocytes # 1.8 10^3/uL (0.8-4.8); Lymphocytes % 14.4 %; Mean Corpuscular Volume 91.4 fl (81-99); Mean Platelet Volume 9.9 fL (7.4-10.4); Monocytes # 0.9 10^3/uL (0.2-0.9); Monocytes % 6.8 %; Neutrophils # 9.65 10^3/uL (1.8-7.7); Neutrophils % 75.8 %; Nucleated Red Blood Cells % 0 %; Platelet Count 374 10^3/cmm (130-400); Red Blood Count 4.06 10^6/uL (4.1-5.3); Red Cell Distribution Width 19.7 % (12.1-15.1); White Blood Count 12.7 10^3/uL (4.0-10.0)
== END 2021-12-23 12:44 | disposition home or self-care (01) ==
PROVIDERS: PCP Internal Medicine; Visit Provider Nurse Practitioner
DX: R07.81 Pleurodynia (principal)
CPT/HCPCS: 36415; 81000; 85025

== ENCOUNTER 2021-12-23 12:44 | Outpatient (CLI) | payer OTHER, MEDICAID, SELFPAY ==
--- NOTE | 2021-12-23 12:58 | XRR_ITS ---
PROCEDURE INFORMATION: Exam: XR Right Ribs Exam date and time: 12/23/2021 12:59 PM Age: 46 years old Clinical indication: Chest wall pain; Right TECHNIQUE: Imaging protocol: Radiologic exam of the Right ribs. Views: 2 views. COMPARISON: CR XR chest 2V* [id number] 10/19/2021 12:02 PM FINDINGS: Bones/joints: Osseous structures are intact. No evidence of rib fracture. Soft tissues: Normal. XR/XR ribs RT 2V* [id number] IMPRESSION: No acute findings.
== END 2021-12-23 12:45 | disposition home or self-care (01) ==
LOC: RAD 12:46
PROVIDERS: PCP Internal Medicine; Visit Provider Nurse Practitioner
DX: R07.81 Pleurodynia (principal); R07.89 Other chest pain
CPT/HCPCS: 71100

== ENCOUNTER → 2022-02-25 10:30 | Outpatient (BNVA) | payer MEDICARE, MEDICAID, SELFPAY | PROVIDERS: PCP Internal Medicine; Visit Provider Registered Nurse Neonatal Intensive Care | DX: M79.671 Pain in right foot (principal); S99.911A Unspecified injury of right ankle, initial encounter | CPT/HCPCS: 73610 ==

== ENCOUNTER → 2022-03-06 15:37 | Outpatient (BNVA) | payer MEDICARE, MEDICAID, SELFPAY | PROVIDERS: PCP Internal Medicine; Visit Provider Internal Medicine | DX: D86.9 Sarcoidosis, unspecified (principal); R76.8 Other specified abnormal immunological findings in serum | CPT/HCPCS: 99214 ==

== ENCOUNTER 2022-04-11 10:56 | Oncology outpatient (recurring) (ONCR) | payer MEDICARE, MEDICAID, SELFPAY ==
[2022-04-11 12:34] LABS: Basophils # 0.1 10^3/uL (0.0-0.1); Basophils % 0.8 %; Eosinophils # 0.2 10^3/uL (0.0-0.8); Eosinophils % 2.9 %; Hematocrit 27.6 % (37.0-47.0); Hemoglobin 8.8 g/dL (11.5-15.3); Lymphocytes % 15.2 %; Mean Corpuscular HGB Conc 31.9 g/dL (30.0-36.0); Mean Corpuscular Hemoglobin 30.4 pg (28.0-34.0); Mean Corpuscular Volume 95.5 fl (81-99); Mean Platelet Volume 9.6 fL (7.4-10.4); Monocytes # 0.5 10^3/uL (0.2-0.9); Monocytes % 7.3 %; Neutrophils # 4.63 10^3/uL (1.8-7.7); Neutrophils % 73.5 %; Nucleated Red Blood Cells % 0 %; Platelet Count 236 10^3/cmm (130-400); Red Blood Count 2.89 10^6/uL (4.1-5.3); Red Cell Distribution Width 21.6 % (12.1-15.1); White Blood Count 6.3 10^3/uL (4.0-10.0)
[2022-04-11 12:35] LABS: Reticulocyte % 6.9 % (0.5-2.0)
[2022-04-11 13:15] LABS: LAB Peripheral Smear Sent for Review
[2022-04-11 13:17] LABS: Alanine Aminotransferase 16 U/L (0-33); Albumin Level 3.7 g/dL (3.5-5.2); Alkaline Phosphatase 57 U/L (35-105); Anion Gap 11.8 (5-19); Aspartate Amino Transferase 23 U/L (0-32); Blood Urea Nitrogen 11 mg/dL (6-20); Calcium 9.2 mg/dL (8.5-10.5); Carbon Dioxide 26 mmol/L (22-29); Chloride 105 mmol/L (98-107); Globulin 3.6 g/dL (1.3-4.6); Glomerular Filtration Rate 106.3 mL/min (90-130); Glucose 126 mg/dL (65-115); Iron 68 ug/dL (37-145); Lactate Dehydrogenase 250 U/L (135-214); Osmolality Calculated 289 mOsm/kg (285-295); Percent Saturation 24.5 % (20-50); Potassium 3.8 mmol/L (3.5-5.1); Sodium 139 mmol/L (136-145); Total Bilirubin 1.6 mg/dL (0.15-1.2); Total Iron Binding Capacity 277 mcg/dl; Total Protein 7.3 g/dL (6.6-8.7); Unsaturated Iron Binding 209 ug/dL (112-347); Vitamin B12 486 pg/mL (232-1245)
[2022-04-11 13:33] LABS: Folate Level > 20.0 ng/mL (4.8-37.3)
== END 2022-05-01 23:59 | disposition home or self-care (01) ==
PROVIDERS: PCP Internal Medicine; Visit Provider Internal Medicine Medical Oncology
DX: D58.8 Other specified hereditary hemolytic anemias (principal); Z86.16 Personal history of COVID-19
CPT/HCPCS: 36415; 80053; 82248; 82607; 82746; 83010; 83540; 83550; 83615; 85025; 85045; 86880; 99204

== ENCOUNTER → 2022-05-15 10:43 | Outpatient (BNVA) | payer MEDICARE, MEDICAID, SELFPAY | PROVIDERS: PCP Internal Medicine; Visit Provider Podiatrist Foot & Ankle Surgery | DX: E11.8 Type 2 diabetes mellitus with unspecified complications (principal); E11.21 Type 2 diabetes mellitus with diabetic nephropathy; M20.41 Other hammer toe(s) (acquired), right foot; M20.42 Other hammer toe(s) (acquired), left foot; L60.3 Nail dystrophy; M21.621 Bunionette of right foot; M21.622 Bunionette of left foot; L84 Corns and callosities; Z79.84 Long term (current) use of oral hypoglycemic drugs; Z79.4 Long term (current) use of insulin; M20.40 Other hammer toe(s) (acquired), unspecified foot | CPT/HCPCS: 11056; 11721 ==

== ENCOUNTER 2022-05-17 09:57 | Oncology outpatient (recurring) (ONCR) | payer MEDICARE, MEDICAID, SELFPAY ==
[2022-05-17 10:26] LABS: Reticulocyte % 6.6 % (0.5-2.0)
[2022-05-17 10:27] LABS: Basophils # 0.1 10^3/uL (0.0-0.1); Basophils % 0.9 %; Eosinophils # 0.2 10^3/uL (0.0-0.8); Hematocrit 26.9 % (37.0-47.0); Hemoglobin 8.9 g/dL (11.5-15.3); Lymphocytes # 0.8 10^3/uL (0.8-4.8); Lymphocytes % 15.1 %; Mean Corpuscular HGB Conc 33.1 g/dL (30.0-36.0); Mean Corpuscular Hemoglobin 30.6 pg (28.0-34.0); Mean Corpuscular Volume 92.4 fl (81-99); Mean Platelet Volume 8.9 fL (7.4-10.4); Monocytes # 0.3 10^3/uL (0.2-0.9); Monocytes % 6.1 %; Neutrophils # 4.16 10^3/uL (1.8-7.7); Neutrophils % 74.5 %; Nucleated Red Blood Cells % 0 %; Platelet Count 196 10^3/cmm (130-400); Red Blood Count 2.91 10^6/uL (4.1-5.3); Red Cell Distribution Width 21.3 % (12.1-15.1); White Blood Count 5.6 10^3/uL (4.0-10.0)
[2022-05-17 10:48] LABS: Iron 93 ug/dL (37-145); Lactate Dehydrogenase 268 U/L (135-214); Percent Saturation 32.7 % (20-50); Total Iron Binding Capacity 284 mcg/dl; Unsaturated Iron Binding 191 ug/dL (112-347)
== END 2022-05-29 23:59 | disposition home or self-care (01) ==
PROVIDERS: PCP Internal Medicine; Visit Provider Internal Medicine Medical Oncology
DX: D58.8 Other specified hereditary hemolytic anemias (principal); D86.1 Sarcoidosis of lymph nodes; M35.00 Sjogren syndrome, unspecified; M05.9 Rheumatoid arthritis with rheumatoid factor, unspecified; Z79.899 Other long term (current) drug therapy
CPT/HCPCS: 36415; 83540; 83550; 83615; 85025; 85045; 88184; 88185; 99214

== ENCOUNTER → 2022-07-09 12:59 | Outpatient (BNVA) | payer MEDICARE, MEDICAID, SELFPAY | PROVIDERS: PCP Internal Medicine; Visit Provider Internal Medicine | DX: R76.8 Other specified abnormal immunological findings in serum (principal); D86.9 Sarcoidosis, unspecified | CPT/HCPCS: 36415; 80053; 82784; 83010; 83615; 85025; 85045; 85651; 86140; 99214 ==

== ENCOUNTER → 2022-07-17 15:00 | Outpatient (BNVA) | payer MEDICARE, MEDICAID, SELFPAY | PROVIDERS: PCP Internal Medicine; Visit Provider Nurse Practitioner Women's Health | DX: L60.1 Onycholysis (principal); N91.2 Amenorrhea, unspecified; N95.0 Postmenopausal bleeding | CPT/HCPCS: 82670; 83001; 84146; 84443; 84702; 87624 ==

== ENCOUNTER 2022-07-18 12:46 | Oncology outpatient (recurring) (ONCR) | payer MEDICARE, MEDICAID, SELFPAY | END 2022-07-29 23:59 | disposition home or self-care (01) | LOC: ONCMED 12:46 | PROVIDERS: PCP Internal Medicine; Visit Provider Internal Medicine Medical Oncology | DX: D58.0 Hereditary spherocytosis; D59.4 Other nonautoimmune hemolytic anemias; R53.82 Chronic fatigue, unspecified; Z90.81 Acquired absence of spleen; Z79.899 Other long term (current) drug therapy | CPT/HCPCS: 99214 ==

== ENCOUNTER → 2022-08-07 10:34 | Outpatient (BNVA) | payer MEDICARE, MEDICAID, SELFPAY | PROVIDERS: PCP Internal Medicine; Visit Provider Nurse Practitioner Women's Health | DX: N95.0 Postmenopausal bleeding (principal); N88.8 Other specified noninflammatory disorders of cervix uteri; D25.9 Leiomyoma of uterus, unspecified | CPT/HCPCS: 76830 ==

== ENCOUNTER 2022-08-17 02:19 | Emergency (ER) | payer MEDICARE, MEDICAID, SELFPAY ==
[2022-08-17 02:37] VITALS: BP 137/97; PULSE 88; RESP 16; TEMP 36.7; O2SAT 100; BMI 47.1
[2022-08-17 02:41] VITALS: O2SAT 99
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
[2022-08-17] MEDS: HYDROcodone-acetaminophen 7.5-325 mg Tablet 1 TAB PO (02:52)
[2022-08-17 03:02] LABS: Add Urine Microscopic? NO; Charge for UA Resulting for Rev
[2022-08-17 03:04] LABS: Basophils # 0.1 10^3/uL (0.0-0.1); Basophils % 0.7 %; Eosinophils # 0.2 10^3/uL (0.0-0.8); Eosinophils % 2.5 %; Hematocrit 29.2 % (37.0-47.0); Hemoglobin 9.6 g/dL (11.5-15.3); Lymphocytes # 1.3 10^3/uL (0.8-4.8); Lymphocytes % 17.2 %; Mean Corpuscular HGB Conc 32.9 g/dL (30.0-36.0); Mean Corpuscular Hemoglobin 31.6 pg (28.0-34.0); Mean Corpuscular Volume 96.1 fl (81-99); Monocytes # 0.6 10^3/uL (0.2-0.9); Monocytes % 7.2 %; Neutrophils # 5.54 10^3/uL (1.8-7.7); Neutrophils % 72.1 %; Nucleated Red Blood Cells % 0 %; Platelet Count 234 10^3/cmm (130-400); Red Blood Count 3.04 10^6/uL (4.1-5.3); Red Cell Distribution Width 20.7 % (12.1-15.1); White Blood Count 7.7 10^3/uL (4.0-10.0)
[2022-08-17 03:08] LABS: Bilirubin Urine Neg (Negative); Blood Urine Neg (Negative); Glucose Urine UA Norm (Normal); Ketones Urine 1+ (Negative); Leukocyte Esterase Urine Negative (Negative); Nitrate Urine Negative (Negative); Protein Urine Neg (Negative); Urine Appearance Clear (CLEAR); Urine Color Yellow (Yellow); Urobilinogen Urine 1 mg/dL (Negative); pH Urine 5 (5-7)
[2022-08-17 03:21] LABS: Alanine Aminotransferase 12 U/L (0-33); Albumin Level 3.9 g/dL (3.5-5.2); Alkaline Phosphatase 49 U/L (35-105); Anion Gap 11.7 (5-19); Aspartate Amino Transferase 20 U/L (0-32); Blood Urea Nitrogen 12 mg/dL (6-20); Calcium 8.9 mg/dL (8.5-10.5); Carbon Dioxide 26 mmol/L (22-29); Chloride 105 mmol/L (98-107); Globulin 3.8 g/dL (1.3-4.6); Glomerular Filtration Rate 88.9 mL/min (90-130); Glucose 90 mg/dL (65-115); Lipase 36 U/L (13-60); Osmolality Calculated 287 mOsm/kg (285-295); Potassium 3.7 mmol/L (3.5-5.1); Sodium 139 mmol/L (136-145); Total Bilirubin 1.6 mg/dL (0.15-1.2); Total Protein 7.7 g/dL (6.6-8.7)
[2022-08-17 03:35] VITALS: BP 128/84; PULSE 88; RESP 16; O2SAT 100
== END 2022-08-17 03:36 | disposition home or self-care (01) ==
PROVIDERS: Emergency Provider Emergency Medicine; PCP Internal Medicine
DX: M54.6 Pain in thoracic spine (principal); Z79.85 Long-term (current) use of injectable non-insulin antidiabetic drugs; Z79.84 Long term (current) use of oral hypoglycemic drugs; Z79.4 Long term (current) use of insulin; E11.9 Type 2 diabetes mellitus without complications; E78.5 Hyperlipidemia, unspecified; I10 Essential (primary) hypertension
CPT/HCPCS: 80053; 81003; 83690; 85025; 99283

== ENCOUNTER 2022-09-13 11:59 | Day surgery (SDC) | payer MEDICARE, MEDICAID, SELFPAY ==
[2022-09-10 13:37] VITALS: BMI 46.3
[2022-09-13] VITALS (11 sets, daily range): BP systolic 116–160; BP diastolic 58–94; PULSE 83–100; RESP 16–18; TEMP 36.1–36.8; O2SAT 99–100
[2022-09-13 12:32] LABS: OR HCG Qualitative Urine Negative (Negative)
[2022-09-13] MEDS: sodium chloride 0.9% 1,000 ML 30 ML IV (12:33)
[2022-09-13] MEDS: scopolamine 1.5 Patch 1 PATCH TRANSDERMA (12:50)
[2022-09-13 12:51] LABS: Glucose Point of Care 147 mg/dL (70-110)
[2022-09-13] MEDS: diphenhydrAMINE 50 mg/mL SDV 1mL 12.5 MG IVP (12:52)
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
--- NOTE | 2022-09-13 13:29 | W.PM.OPSUD ---
Surgery/Procedure H&P Update DATE OF PROCEDURE: September 13, 2022 DATE H&P PERFORMED: 09/04/22 H&P UPDATE INFORMATION: I have reviewed H&P completed within last 30 days, I have examined patient prior to procedure and No changes to prior documentation PREOP DIAGNOSIS: abnormal uterine bleeding PLANNED PROCEDURE: Operation Date: 09/13/22 13:50 Proposed Procedures p Hysteroscopy, endometrial sampling,Possible endometrial polypectomy via Myosure:[id number],N95.0(Not Applicable) - Amilcar Menjivar MD
[2022-09-13 13:43] LABS: Basophils % 0.5 %; Eosinophils # 0.2 10^3/uL (0.0-0.8); Eosinophils % 2.2 %; Hematocrit 29.4 % (37.0-47.0); Hemoglobin 9.6 g/dL (11.5-15.3); Lymphocytes # 1.2 10^3/uL (0.8-4.8); Lymphocytes % 15.6 %; Mean Corpuscular HGB Conc 32.7 g/dL (30.0-36.0); Mean Corpuscular Hemoglobin 31.4 pg (28.0-34.0); Mean Corpuscular Volume 96.1 fl (81-99); Mean Platelet Volume 9.2 fL (7.4-10.4); Monocytes # 0.5 10^3/uL (0.2-0.9); Monocytes % 6.2 %; Neutrophils % 75.4 %; Nucleated Red Blood Cells % 0 %; Platelet Count 245 10^3/cmm (130-400); Red Blood Count 3.06 10^6/uL (4.1-5.3); Red Cell Distribution Width 20.5 % (12.1-15.1); White Blood Count 7.4 10^3/uL (4.0-10.0)
[2022-09-13 13:58] LABS: Anion Gap 14.6 (5-19); Blood Urea Nitrogen 9 mg/dL (6-20); Calcium 8.9 mg/dL (8.5-10.5); Carbon Dioxide 23 mmol/L (22-29); Chloride 102 mmol/L (98-107); Glomerular Filtration Rate 131.1 mL/min (90-130); Glucose 116 mg/dL (65-115); Osmolality Calculated 282 mOsm/kg (285-295); Potassium 3.6 mmol/L (3.5-5.1); Sodium 136 mmol/L (136-145)
--- NOTE | 2022-09-13 15:44 | ANE.PACU2 ---
Inpatient post-anesthesia follow up: Airway intact: Yes Vital signs: Temperature 97.7 F Pulse Rate 87 Respiratory Rate 16 Blood Pressure 117/66 Pulse Oximetry 99 Oxygen Delivery Me thod Room Air Oxygen Flow Rate 8 Fraction of Inspir ed Oxygen Hydration adequate: Yes Nausea and vomiting: No Pain level: 3 Mental status: Baseline
--- NOTE | 2022-09-13 22:28 | PM.OP ---
Operative Report Date of procedure: September 13, 2022 Pre-op diagnosis: Preop Diagnosis abnormal uterine bleeding Post-op diagnosis: same Post-op findings: multiple small polyps + moderate amount of endometrial tissue in irregular fashion Procedure done: hysteroscopy Endometrial polypectomy and sampling with Myosure Curettage of uterus Specimens removed/disposition: endometrial tissue Surgeon: Amilcar Menjivar MD Anesthesia: MAC Estimated blood loss (mL): 0 Complications: none Brief History: 47 y.o. with abnormal uterine bleeding Procedure: Informed consent signed. Patient taken to the operating room. Anesthesia induced. Patient was placed in dorsolithotomy position, prepped and draped for hysteroscopy. A bivalve speculum was placed in the vagina. The anterior lip of the cervix was grasped with a sharp-toothed tenaculum. The cervix was serially dilated with Hegar dilators. . A hysteroscope was placed into the endometrial cavity. There were multiple small polyps. There was moderate amount of endometrial tissue arranged in irregular fashion. A Myosure device was used to perform polypectomy and also to obtain endometrial tissue. The hysteroscope and Myosure device were then removed. A sharp curette was then used to obtain endometrial tissue. All tissue sent to pathology. The sharp-toothed tenaculum was removed. There was no bleeding from the endometrial cavity or cervix. The patient was then placed supine and awakened and taken to the PACU. Postop condition: stable EBL: none Sponge and instruments counts were normal x 2 Complications: none
== END 2022-09-13 16:30 | disposition home or self-care (01) ==
PROVIDERS: Anesthesiology; PCP Internal Medicine; Visit Provider Obstetrics & Gynecology
PROC: 0UDB8ZZ Extraction of Endometrium, Via Natural or Artificial Opening Endoscopic (ICD-10-PCS; CPT 58558; principal; 2022-09-13 13:40)
DX: N84.0 Polyp of corpus uteri (principal); I10 Essential (primary) hypertension; J45.909 Unspecified asthma, uncomplicated; D64.9 Anemia, unspecified; K21.9 Gastro-esophageal reflux disease without esophagitis; E11.9 Type 2 diabetes mellitus without complications; E78.5 Hyperlipidemia, unspecified; G47.33 Obstructive sleep apnea (adult) (pediatric); E66.01 Morbid (severe) obesity due to excess calories; Z68.42 Body mass index [BMI] 45.0-49.9, adult; M06.9 Rheumatoid arthritis, unspecified; Z79.4 Long term (current) use of insulin; Z79.84 Long term (current) use of oral hypoglycemic drugs
CPT/HCPCS: 58558; 36416; 80048; 81025; 82962; 84703; 85025; 88305; J1100; J1200; J1885; J2250; J2704; J3010; J7030

== ENCOUNTER → 2022-09-19 12:59 | Outpatient (BNVA) | payer MEDICARE, MEDICAID, SELFPAY | PROVIDERS: PCP Internal Medicine; Visit Provider Podiatrist Foot & Ankle Surgery | DX: E11.21 Type 2 diabetes mellitus with diabetic nephropathy (principal); M20.41 Other hammer toe(s) (acquired), right foot; M20.42 Other hammer toe(s) (acquired), left foot; L60.3 Nail dystrophy; M21.621 Bunionette of right foot; M21.622 Bunionette of left foot; M20.40 Other hammer toe(s) (acquired), unspecified foot; L84 Corns and callosities; Z79.4 Long term (current) use of insulin; Z79.84 Long term (current) use of oral hypoglycemic drugs | CPT/HCPCS: 11056; 11721 ==

== ENCOUNTER 2023-01-04 10:21 | Outpatient (CLI) | payer MEDICARE, MEDICAID, SELFPAY ==
--- NOTE | 2023-01-04 13:51 | MM_ITS ---
WS: [id number] BILATERAL 3D TOMOSYNTHESIS DIGITAL SCREENING MAMMOGRAPHY WITH CAD CLINICAL INFORMATION: SCREENING HISTORY: Screening mammogram. No current complaints. COMPARISON: 2021 TECHNIQUE: Bilateral CC and MLO views. FINDINGS: Scattered fibroglandular densities bilaterally. No suspicious focal mass, asymmetry, calcifications, or architectural distortion. No evidence of malignancy. IMPRESSION: MM/[place] [id number] BI-RADS: 1-Negative FOLLOW UP: 1 Year Follow-up Recommend return to annual screening mammography.
== END 2023-01-04 10:22 | disposition home or self-care (01) ==
LOC: RAD 10:22
PROVIDERS: PCP Internal Medicine; Visit Provider Internal Medicine
DX: Z12.31 Encounter for screening mammogram for malignant neoplasm of breast (principal); R76.8 Other specified abnormal immunological findings in serum
CPT/HCPCS: 36415; 77063; 77067; 80053; 83520; 85025; 85651; 86140; 99214

== ENCOUNTER → 2023-02-05 07:39 | Outpatient (BNVA) | payer MEDICARE, MEDICAID, SELFPAY | PROVIDERS: PCP Internal Medicine; Visit Provider Podiatrist Foot & Ankle Surgery | DX: E11.21 Type 2 diabetes mellitus with diabetic nephropathy (principal); M20.41 Other hammer toe(s) (acquired), right foot; M20.42 Other hammer toe(s) (acquired), left foot; L60.3 Nail dystrophy; M21.621 Bunionette of right foot; M21.622 Bunionette of left foot; L84 Corns and callosities; Z79.4 Long term (current) use of insulin; Z79.84 Long term (current) use of oral hypoglycemic drugs | CPT/HCPCS: 11056; 11721 ==

== ENCOUNTER → 2023-04-17 10:01 | Outpatient (BNVA) | payer MEDICARE, MEDICAID, SELFPAY | PROVIDERS: PCP Internal Medicine; Visit Provider Internal Medicine | DX: M19.90 Unspecified osteoarthritis, unspecified site (principal) | CPT/HCPCS: 73502; 73560; 99214 ==

== ENCOUNTER 2023-05-05 23:57 | Emergency (ER) | payer MEDICARE, MEDICAID, SELFPAY ==
[2023-05-05 23:59] VITALS: BP 165/51; PULSE 98; RESP 16; TEMP 36.6; O2SAT 98; BMI 45.0
--- NOTE | 2023-05-06 00:16 | XRR_ITS ---
PROCEDURE INFORMATION: Exam: XR Chest Exam date and time: 05/06/2023 12:22 AM Age: 48 years old Clinical indication: Other: Syncope; Prior surgery; Surgery date: 6+ months; Surgery type: Lung biopsy; Patient HX: Syncopal episode TECHNIQUE: Imaging protocol: Radiologic exam of the chest. Views: 1 view. COMPARISON: CR XR chest 2V* [id number] 10/19/2021 12:02 PM FINDINGS: Lungs: Unremarkable. No consolidation. Pleural spaces: Unremarkable. No pleural effusion. No pneumothorax. Heart/Mediastinum: Unremarkable. No cardiomegaly. Bones/joints: Unremarkable. XR/XR chest 1V portable [id number] IMPRESSION: No acute findings.
--- NOTE | 2023-05-06 00:16 | CTR_ITS ---
PROCEDURE INFORMATION: Exam: CT Head Without Contrast Exam date and time: 05/06/2023 12:28 AM Age: 48 years old Clinical indication: Syncope and collapse; Patient HX: Syncopal episode TECHNIQUE: Imaging protocol: Computed tomography of the head without contrast. Radiation optimization: All CT scans at this facility use at least one of these dose optimization techniques: automated exposure control; mA and/or kV adjustment per patient size (includes targeted exams where dose is matched to clinical indication); or iterative reconstruction. COMPARISON: MR becker's wo/w con* [id number] 11/05/2018 11:19 AM RADIATION DOSE METRICS: Total DLP (mGy-cm): 1134.18 FINDINGS: Brain: No focal hemorrhage or midline shift is identified. Cerebral ventricles: No ventriculomegaly or evidence of acute hydrocephalus. Paranasal sinuses: The partially assessed sinuses are grossly clear. Mastoid air cells: Visualized mastoid air cells are well aerated. Bones/joints: No displaced skull fracture is noted. Soft tissues: Unremarkable. CT/CT head wo con* [id number] IMPRESSION: No acute intracranial abnormality.
[2023-05-06] MEDS: sodium chloride 0.9% 1,000 ML 999 ML IV (00:22)
[2023-05-06 00:27] LABS: Basophils % 0.6 %; Eosinophils % 0.8 %; Hematocrit 25.8 % (36-47); Lymphocytes # 0.8 10^3/uL (0.8-4.8); Lymphocytes % 15.4 %; Mean Corpuscular HGB Conc 34.5 g/dL (30-55); Mean Corpuscular Hemoglobin 33.1 pg (27-33); Mean Corpuscular Volume 95.9 fl (85-98); Mean Platelet Volume 9.7 fL (7.4-10.4); Monocytes # 0.4 10^3/uL (0.2-0.9); Monocytes % 7.6 %; Neutrophils # 3.77 10^3/uL (1.8-7.7); Neutrophils % 75.4 %; Nucleated Red Blood Cells % 0 %; Platelet Count 185 10^3/cmm (157-399); Red Blood Count 2.69 10^6/uL (3.85-5.65); Red Cell Distribution Width 20.3 % (12.1-15.1)
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
--- NOTE | 2023-05-06 00:36 | ECG_ITS ---
[facility] Test Date: 2023-05-06 Pat Name: Deedee Beck Department: Room: Gender: Female Daub Color Mixer: : 1975 Requested By: Calderon Davis Order Number: [id number] Cain MD: Georgi De M.D. Measurements Intervals [place] Rate: 90 P: 41 NC: 132 QRS: 91 QRSD: 132 T: 50 QT: 413 QTc: 508 Interpretive Statements SINUS RHYTHM RIGHT BUNDLE BRANCH BLOCK [120+ ms QRS DURATION, UPRIGHT V1, 40+ ms S IN I/aVL/V4/V5/V6] No previous ECG available for comparison Electronically Signed On 05-06-2023 8:36:05 TECHNICAL SERVICES ASSISTANT by Georgi De M.D. [email or web address] care [email or web address] health system [email or web address]
[2023-05-06 00:38] LABS: HCG, Serum Qual Negative (Negative)
[2023-05-06 00:45] LABS: Alanine Aminotransferase 11 U/L (0-33); Albumin Level 3.9 g/dL (3.5-5.2); Alkaline Phosphatase 53 U/L (35-105); Anion Gap 17.5 (5-19); Aspartate Amino Transferase 19 U/L (0-32); Blood Urea Nitrogen 12 mg/dL (6-20); Calcium 8.9 mg/dL (8.5-10.5); Carbon Dioxide 22 mmol/L (22-29); Chloride 101 mmol/L (98-107); Globulin 4.1 g/dL (1.3-4.6); Glomerular Filtration Rate 75.9 mL/min (90-130); Glucose 107 mg/dL (65-115); Magnesium 1.7 mg/dL (1.7-2.3); Osmolality Calculated 284 mOsm/kg (285-295); Potassium 3.5 mmol/L (3.5-5.1); Sodium 137 mmol/L (136-145); Total Bilirubin 2.7 mg/dL (0.15-1.2)
[2023-05-06 00:46] LABS: Troponin(5th) Baseline 8 ng/L (0-10)
[2023-05-06 01:05] LABS: Urine Appearance Hazy (CLEAR); Urine Color Orange (Yellow)
[2023-05-06 01:06] LABS: Add Urine Microscopic? YES; Bilirubin Urine 1+ (Negative); Blood Urine Neg (Negative); Glucose Urine UA Norm (Normal); Ketones Urine Negative (Negative); Leukocyte Esterase Urine Trace (Negative); Nitrate Urine Negative (Negative); Protein Urine 1+ (Negative); Urobilinogen Urine 1 mg/dL (Negative); pH Urine 5 (5-7)
[2023-05-06 01:09] LABS: RBC Urine 0-4 /hpf (0-2)
[2023-05-06 01:10] LABS: Amorphous Sediment Urine 1+ /hpf; Bacteria Urine 2+ /hpf; Hyaline Casts Urine 0-4 /lpf; Mucus Urine 2+ /hpf; Squamous Epithelial Cell Urine 15-25 /hpf (0-5); WBC Urine 15-25 /hpf (0-5)
[2023-05-06 01:20] LABS: Influenza A by IFA negative (Negative); Influenza B by IFA positive (Negative); SARS Covid-2 Antigen negative (Negative)
[2023-05-06 02:21] VITALS: BP 160/67; PULSE 98; RESP 16; TEMP 36.6; O2SAT 98
[2023-05-06 02:23] LABS: Troponin 5 2HR 7.07 ng/L (0-10)
[2023-05-06 02:25] LABS: Troponin 5 2HR Delta -0.93 ABS# (0-10)
== END 2023-05-06 02:23 | disposition home or self-care (01) ==
PROVIDERS: Emergency Provider Emergency Medicine; PCP Internal Medicine
DX: R55 Syncope and collapse (principal); J10.1 Influenza due to other identified influenza virus with other respiratory manifestations; Z79.85 Long-term (current) use of injectable non-insulin antidiabetic drugs; Z79.4 Long term (current) use of insulin; Z79.84 Long term (current) use of oral hypoglycemic drugs; Z11.52 Encounter for screening for COVID-19; E11.9 Type 2 diabetes mellitus without complications; E78.5 Hyperlipidemia, unspecified; I10 Essential (primary) hypertension
CPT/HCPCS: 36415; 70450; 71045; 80053; 81001; 83735; 84484; 84703; 85025; 87426; 87804; 93005; 96360; 96361; 99285; J7030

== ENCOUNTER → 2023-06-04 10:56 | Outpatient (BNVA) | payer MEDICARE, MEDICAID, SELFPAY | PROVIDERS: PCP Internal Medicine; Visit Provider Podiatrist Foot & Ankle Surgery | DX: E11.21 Type 2 diabetes mellitus with diabetic nephropathy (principal); M20.41 Other hammer toe(s) (acquired), right foot; M20.42 Other hammer toe(s) (acquired), left foot; L60.3 Nail dystrophy; M21.621 Bunionette of right foot; M21.622 Bunionette of left foot; L84 Corns and callosities; Z79.4 Long term (current) use of insulin; Z79.84 Long term (current) use of oral hypoglycemic drugs | CPT/HCPCS: 11056; 11721 ==

== ENCOUNTER 2023-10-05 05:40 | Emergency (ER) | payer MEDICARE, MEDICAID, SELFPAY ==
[2023-10-05] VITALS (11 sets, daily range): BP systolic 116–173; BP diastolic 46–99; PULSE 52–107; RESP 14–20; TEMP 36.6; O2SAT 88–100; BMI 45.0
--- NOTE | 2023-10-05 06:04 | PC.NURSE ---
bs reading pt personal bg moniter is reading 176 at this current time.
[2023-10-05 06:21] LABS: Basophils % 0.6 %; Eosinophils # 0.1 10^3/uL (0.0-0.8); Eosinophils % 1.7 %; Hematocrit 29.6 % (36-47); Lymphocytes # 0.8 10^3/uL (0.8-4.8); Lymphocytes % 15.8 %; Mean Corpuscular HGB Conc 33.1 g/dL (30-55); Mean Corpuscular Volume 96.7 fl (85-98); Mean Platelet Volume 9.4 fL (7.4-10.4); Monocytes # 0.2 10^3/uL (0.2-0.9); Monocytes % 4.1 %; Neutrophils # 4.02 10^3/uL (1.8-7.7); Neutrophils % 77.6 %; Nucleated Red Blood Cells % 0 %; Platelet Count 196 10^3/cmm (157-399); Red Blood Count 3.06 10^6/uL (3.85-5.65); Red Cell Distribution Width 18.9 % (12.1-15.1); White Blood Count 5.18 10^3/uL (3.29-11.43)
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
[2023-10-05 06:38] LABS: Alanine Aminotransferase 9 U/L (0-33); Albumin Level 3.7 g/dL (3.5-5.2); Alkaline Phosphatase 55 U/L (35-105); Anion Gap 12.9 (5-19); Aspartate Amino Transferase 18 U/L (0-32); Blood Urea Nitrogen 14 mg/dL (6-20); Calcium 8.4 mg/dL (8.5-10.5); Carbon Dioxide 26 mmol/L (22-29); Chloride 105 mmol/L (98-107); Creatinine Clr Calc Pharmacy 139.7115; Globulin 3.8 g/dL (1.3-4.6); Glomerular Filtration Rate 88.6 mL/min (90-130); Glucose 179 mg/dL (65-115); Osmolality Calculated 295 mOsm/kg (285-295); Potassium 3.9 mmol/L (3.5-5.1); Sodium 140 mmol/L (136-145); Total Bilirubin 1.2 mg/dL (0.15-1.2); Total Protein 7.5 g/dL (6.6-8.7)
--- NOTE | 2023-10-05 06:38 | PC.NURSE ---
pt bs pt bg monitor reading 140 at this time.
--- NOTE | 2023-10-05 07:47 | PC.NURSE ---
Patient's blood sugar is 114, she has finished the bottle of sweet tea that she had to drink. I have given the patient peanut butter and inocencio crackers to eat hoping some protein with sugar will help her blood sugar level out better.
--- NOTE | 2023-10-05 08:10 | PC.NURSE ---
Patient has eaten all of her inocencio crackers and some of her peanut butter, we gave her 2 small milks and ordered her a high protein breakfast. Patient's blood sugar is currently 81.
--- NOTE | 2023-10-05 08:17 | PC.NURSE ---
Patient's blood sugar is at 69. I went to the cafeteria and got the patient a high protein breakfast meal tray and delivered it to her and told her to try and eat as much as possible.
--- NOTE | 2023-10-05 08:53 | PC.NURSE ---
Patient ate all her breakfast and her blood sugar is 105. Patient is requesting to leave and follow her blood sugar at home and stating I think I can manage it from here . Spoke with Dr. Murillo and she stated that the patient still needs to be observed for a while.
--- NOTE | 2023-10-05 09:14 | PC.NURSE ---
Patient blood sugar is now 86, I spoke with Dr. Murillo and she wants us to check it again in 30 minutes.
== END 2023-10-05 10:31 | disposition home or self-care (01) ==
PROVIDERS: Emergency Provider Emergency Medicine; PCP Internal Medicine
DX: T38.3X1A Poisoning by insulin and oral hypoglycemic [antidiabetic] drugs, accidental (unintentional), initial encounter (principal); F41.9 Anxiety disorder, unspecified; D64.9 Anemia, unspecified; E11.9 Type 2 diabetes mellitus without complications; I10 Essential (primary) hypertension; E78.5 Hyperlipidemia, unspecified; Z79.4 Long term (current) use of insulin; Z79.84 Long term (current) use of oral hypoglycemic drugs; Z79.85 Long-term (current) use of injectable non-insulin antidiabetic drugs
CPT/HCPCS: 80053; 85025; 99283

== ENCOUNTER → 2023-11-14 15:16 | Outpatient (BNVA) | payer MEDICARE, MEDICAID, SELFPAY | PROVIDERS: PCP Internal Medicine; Visit Provider Podiatrist Foot & Ankle Surgery | DX: M25.571 Pain in right ankle and joints of right foot (principal); M19.171 Post-traumatic osteoarthritis, right ankle and foot; M25.371 Other instability, right ankle | CPT/HCPCS: 73610; 99213 ==

== ENCOUNTER → 2024-05-14 14:03 | Outpatient (BNVA) | payer MEDICARE, MEDICAID, SELFPAY | PROVIDERS: PCP Internal Medicine; Referring Provider Internal Medicine; Visit Provider Nurse Practitioner Family | DX: L98.1 Factitial dermatitis (principal); L20.81 Atopic neurodermatitis; L85.3 Xerosis cutis; D22.5 Melanocytic nevi of trunk | CPT/HCPCS: 99204 ==

== ENCOUNTER 2024-10-19 08:57 | Emergency (ER) | payer MEDICARE, MEDICAID, SELFPAY ==
[2024-10-19] VITALS (29 sets, daily range): BP systolic 106–178; BP diastolic 51–131; PULSE 75–88; RESP 8–23; TEMP 37.1; O2SAT 96–100; BMI 45.6
--- NOTE | 2024-10-19 09:01 | XRR_ITS ---
PROCEDURE INFORMATION: Exam: XR Chest Exam date and time: 10/19/2024 9:41 AM Age: 49 years old Clinical indication: Other: Chest congestion TECHNIQUE: Imaging protocol: Radiologic exam of the chest. Views: 1 view. COMPARISON: CR XR chest 1V portable [id number] 05/06/2023 12:22 AM FINDINGS: Lungs: Unremarkable. No consolidation. Pleural spaces: Unremarkable. No pleural effusion. No pneumothorax. Heart/Mediastinum: Unremarkable. No cardiomegaly. Bones/joints: Unremarkable. XR/XR chest 1V portable [id number] IMPRESSION: No acute findings.
--- OUTSIDE RECORDS SUMMARY | 2024-10-19 09:05 | XMS_ITS ---
Author Organization Unknown Problems Date Problem Result OnSetDate Icd10 SnomedCode Severity Cu stom 10/16/2023 12:49:38 Ankle pain, chronic 10/16/2023 00:00:00 M25.579 [id number] 02/10/2024 15:18:23 Viral illness, acute 08/05/2023 00:00:00 B34.9 [id number] 02/10/2024 15:18:23 Mammogram yearly screening 11/29/2022 00:00:00 Z12.31 [id number] 02/10/2024 15:26:27 Hereditary spherocytosis 02/10/2024 00:00:00 D58.0 [id number] 02/10/2024 15:25:18 Skin lesion 02/10/2024 00:00:00 L98.9 [id number] 02/10/2024 15:18:23 Comprehensive physical exam 06/26/2023 00:00:00 Z00.00 [id number]
--- NOTE | 2024-10-19 09:20 | ECG_ITS ---
[facility]: 2024-10[facility]19 Pat Name: Deedee Beck Department: Room: Gender: Female Head Of Maintenance: : 1975 Requested By: Nikhil Mayes Order Number: [id number] Ant MD: Glendy Keys M.D. Measurements Intervals [place] Rate: 89 P: 23 DC: 157 QRS: -4 QRSD: 82 T: 29 QT: 374 QTc: 455 Interpretive Statements SINUS RHYTHM LOW QRS VOLTAGE IN PRECORDIAL LEADS [QRS DEFLECTION < 1.0 mV IN CHEST LEADS] Compared to ECG 05/06/2023 00:36:26 Low QRS voltage now present Right bundle-branch block no longer present Electronically Signed On 10-19-2024 16:59:36 CDT by Glendy Keys M.D. [email or web address]
[2024-10-19 10:18] LABS: Hematocrit 31.0 % (36-47); Hemoglobin 10.20 g/dL (11.27-16.99); Mean Corpuscular HGB Conc 32.9 g/dL (30-55); Mean Corpuscular Hemoglobin 30.0 pg (27-33); Mean Corpuscular Volume 91.2 fl (85-98); Nucleated Red Blood Cells % 0 %; Platelet Count 223 10^3/cmm (157-399); Red Blood Count 3.40 10^6/uL (3.85-5.65); White Blood Count 10.55 10^3/uL (3.29-11.43)
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
[2024-10-19 10:33] LABS: Alanine Aminotransferase 20 U/L (0-33); Albumin Level 4.0 g/dL (3.5-5.2); Alkaline Phosphatase 65 U/L (35-105); Anion Gap 16.0 (5-19); Aspartate Amino Transferase 19 U/L (0-32); Blood Urea Nitrogen 10 mg/dL (6-20); Calcium 9.0 mg/dL (8.5-10.5); Carbon Dioxide 26 mmol/L (22-29); Chloride 98 mmol/L (98-107); Creatinine Clr Calc Pharmacy 139.2488; Globulin 3.7 g/dL (1.3-4.6); Glucose 203 mg/dL (65-115); Osmolality Calculated 287 mOsm/kg (285-295); Potassium 4.0 mmol/L (3.5-5.1); Sodium 136 mmol/L (136-145); Total Protein 7.7 g/dL (6.6-8.7); Troponin(5th) Baseline 8 ng/L (0-10)
--- NOTE | 2024-10-19 11:29 | ECG_ITS ---
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 Measurements Intervals [place] Rate: 78 P: 37 [place]: 150 QRS: 13 QRSD: 97 T: 30 QT: 408 QTc: 466 Interpretive Statements SINUS RHYTHM LOW QRS VOLTAGE IN PRECORDIAL LEADS [QRS DEFLECTION < 1.0 mV IN CHEST LEADS] Compared to ECG 10/19/2024 09:20:35 No significant changes Electronically Signed On 10-19-2024 17:09:25 CDT by Glendy Keys M.D. [email or web address]
[2024-10-19 12:48] LABS: Troponin 5 2HR 8.44 ng/L (0-10); Troponin 5 2HR Delta 0.44 ABS# (0-10)
== END 2024-10-19 13:20 | disposition home or self-care (01) ==
PROVIDERS: Physician Assistant; Emergency Provider Family Medicine; PCP Internal Medicine
DX: R07.89 Other chest pain (principal); Z79.4 Long term (current) use of insulin; Z87.891 Personal history of nicotine dependence; E11.9 Type 2 diabetes mellitus without complications; I10 Essential (primary) hypertension; E78.5 Hyperlipidemia, unspecified
CPT/HCPCS: 36415; 71045; 80053; 84484; 85025; 93005; 99285; J9999

== ENCOUNTER 2025-02-12 14:58 | Emergency (ER) | payer MEDICARE, MEDICAID, SELFPAY ==
[2025-02-12] VITALS (9 sets, daily range): BP systolic 90–140; BP diastolic 54–62; PULSE 94–98; RESP 16–20; TEMP 37.1; O2SAT 95–100
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
--- NOTE | 2025-02-12 15:54 | ED_ITS ---
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 (Negative) 02/12/25 19:19 Urine RBC 0-4 /hpf (0-2) H 02/12/25 19:19 Urine WBC 0-4 /hpf (0-5) H 02/12/25 19:19 Ur Squamous Epith Cells 5-10 /hpf (0-5) H 02/12/25 19:19 Amorphous Sediment Not Reportable 02/12/25 19:19 Urine Bacteria None /hpf (NONE) 02/12/25 19:19 Discharge Plan Discharge Patient Disposition: Xfer Short-Term Hosp Clinical Impression: Bulging of cervical intervertebral disc, Leukemoid reaction, Splenomegaly, Contusion of right supraorbital area, Sarcoidosis Closed fracture of left tibial plateau Qualifiers: Encounter type: initial encounter Qualified Code(s): S82.142A - Displaced bicondylar fracture of left tibia, initial encounter for closed fracture Anemia Qualifiers: Anemia type: unspecified type Qualified Code(s): D64.9 - Anemia, unspecified Diabetes mellitus Qualifiers: Diabetes mellitus type: type 2 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
[2025-02-12] MEDS: iohexol 350 mg/mL 500 mL Btl (per mL) IV (16:12)
--- NOTE | 2025-02-12 16:43 | ECG_ITS ---
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 [email or web address]
[2025-02-12 16:50] LABS: Hematocrit 27.6 % (36-47); Hemoglobin 8.80 g/dL (11.27-16.99); Mean Corpuscular HGB Conc 31.9 g/dL (30-55); Mean Corpuscular Hemoglobin 30.8 pg (27-33); Mean Corpuscular Volume 96.5 fl (85-98); Nucleated Red Blood Cells % 0 %; Platelet Count 214 10^3/cmm (157-399); Red Blood Count 2.86 10^6/uL (3.85-5.65); White Blood Count 16.65 10^3/uL (3.29-11.43)
[2025-02-12] MEDS: morphine 4 mg/mL SDV 1 mL IVP ×3 (17:00→23:38)
[2025-02-12 17:03] LABS: INR 0.97 (0.8-1.2); Prothrombin Time 13.60 SECONDS (12.1-14.9)
[2025-02-12 17:08] LABS: Alanine Aminotransferase 19 U/L (0-33); Albumin Level 3.7 g/dL (3.5-5.2); Alkaline Phosphatase 55 U/L (35-105); Aspartate Amino Transferase 26 U/L (0-32); Blood Urea Nitrogen 10 mg/dL (6-20); Calcium 8.3 mg/dL (8.5-10.5); Carbon Dioxide 22 mmol/L (22-29); Chloride 103 mmol/L (98-107); Globulin 3.2 g/dL (1.3-4.6); Glucose 219 mg/dL (65-115); Osmolality Calculated 288 mOsm/kg (285-295); Sodium 136 mmol/L (136-145); Total Protein 6.9 g/dL (6.6-8.7)
[2025-02-12 17:09] LABS: Anion Gap 14.9 (5-19); Potassium 3.9 mmol/L (3.5-5.1)
[2025-02-12 17:10] LABS: Lactic Sepsis W/Reflex 1.5 mmol/L (0.5-2.2)
[2025-02-12 19:26] LABS: Glucose Urine UA 3+ (Normal); Nitrate Urine Negative (Negative)
[2025-02-12 19:39] LABS: Add Urine Microscopic? YES; Specific Gravity, Urine 1.065 (1.005-1.030)
== END 2025-02-12 23:53 | disposition short-term general hospital (02) ==
PROVIDERS: Emergency Provider Physician Assistant; PCP Internal Medicine
DX: M50.321 Other cervical disc degeneration at C4-C5 level (principal); D72.823 Leukemoid reaction; S05.11XA Contusion of eyeball and orbital tissues, right eye, initial encounter; S82.142A Displaced bicondylar fracture of left tibia, initial encounter for closed fracture; D64.9 Anemia, unspecified; E11.9 Type 2 diabetes mellitus without complications; E78.5 Hyperlipidemia, unspecified; I10 Essential (primary) hypertension; Z87.891 Personal history of nicotine dependence; V89.2XXA Person injured in unspecified motor-vehicle accident, traffic, initial encounter
CPT/HCPCS: 36415; 36416; 70450; 70486; 71260; 72125; 73552; 73560; 73590; 74177; 80053; 81001; 82962; 83605; 85025; 85610; 93005; 96361; 96374; 96375; 96376; 99285; J0780; J2270; J7120